=== PATIENT | female | born 1995 | race Caucasian/White ===

== ENCOUNTER 2021-08-30 09:05 | Inpatient (IN) | payer BC ==
[2021-08-30] MEDS ORDERED: Ondansetron 4 MG/2 ML SDV IVPUSH PRN (09:45)
[2021-08-30] MEDS ORDERED: Sodium Chloride 0.9% 10 ML Syringe FLUSH PRN (09:45)
[2021-08-30] MEDS ORDERED: Water For Irrigation,Sterile 1,000 ML Container IRR PRN (09:45)
[2021-08-30] MEDS ORDERED: Butorphanol 1 MG/ML SDV IVPUSH PRN (09:45)
[2021-08-30] MEDS ORDERED: Lactated Ringers 1,000 ML IV SCH (09:45)
[2021-08-30] MEDS ORDERED: Oxytocin/0.9 % Sodium Chloride 30 UNIT/500 ML BAG IV SCH (09:45)
[2021-08-30] MEDS ORDERED: Lidocaine 1% 50 ML MDV INJECT PRN (09:45)
[2021-08-30] MEDS ORDERED: Carboprost Tromethamine 250 MCG/1 ML Amp IM PRN (09:45)
[2021-08-30] MEDS ORDERED: Sodium Chloride 0.9% 2.5 ML Syringe FLUSH PRN (09:45)
[2021-08-30] MEDS ORDERED: Methylergonovine 0.2 MG/1 ML Amp IM PRN (09:45)
[2021-08-30] MEDS ORDERED: Sodium Chloride 0.9% 20 ML SDV IV PRN (09:45)
[2021-08-30] MEDS ORDERED: Misoprostol 200 MCG Tab PO PRN (09:45)
[2021-08-30] MEDS ORDERED: Tranexamic Acid 1,000 MG in Sodium Chloride 0.9% 100 ML IV PRN (09:45)
[2021-08-30] MEDS ORDERED: Labetalol 100 MG/20 ML MDV IVPUSH PRN (09:49)
[2021-08-30] MEDS ORDERED: fentaNYL 100 MCG/2 ML SDV ONE (11:34)
[2021-08-30] MEDS ORDERED: Ropivacaine 100 ML ONE (11:34)
[2021-08-30 11:35] LABS: BLOOD UREA NITROGEN,BUN 13 mg/dL (7.0-18.0); CHLORIDE,CL 103 mmol/L (98-107); GLUCOSE RANDOM 78 mg/dL (74-106); POTASSIUM,K 3.9 mmol/L (3.5-5.1); SODIUM,NA 137 mmol/L (136-145)
[2021-08-30] MEDS ORDERED: ePHEDrine 50 MG/ML SDV IVPUSH PRN (12:00)
[2021-08-30] MEDS ORDERED: Docusate Sodium 100 MG Cap PO PRN (16:48)
[2021-08-30] MEDS ORDERED: Bisacodyl 10 MG Supp RECTAL PRN (16:48)
[2021-08-30] MEDS ORDERED: oxyCODONE 5 MG Tab PO PRN (16:48)
[2021-08-30] MEDS ORDERED: Lanolin 100% Cream 7 GM Tube TOP PRN (16:48)
[2021-08-30] MEDS: Witch Hazel Medicated Pads 40/Jar TOP PRN (19:36)
[2021-08-30] MEDS: Acetaminophen 500 MG Tab PO PRN (19:36)
[2021-08-30] MEDS: Benzocaine/Menthol 20%-0.5% Spray 78 GM Cannister TOP PRN (19:37)
[2021-08-30] MEDS: Ibuprofen 800 MG Tab PO PRN (23:15)
[2021-08-31] MEDS: Acetaminophen 500 MG Tab PO PRN (05:30)
[2021-08-31] MEDS: Ibuprofen 800 MG Tab PO PRN (09:51)
[2021-08-31] MEDS: Benzocaine/Menthol 20%-0.5% Spray 78 GM Cannister TOP PRN (11:58)
[2021-08-31] MEDS: Witch Hazel Medicated Pads 40/Jar TOP PRN (11:59)
[2021-09-01] MEDS: Acetaminophen 500 MG Tab PO PRN (00:24)
== END 2021-09-01 22:27 | disposition home or self-care (01) | DRG 560 ==
LOC: MW.OBCHECK 09:05 → MW.OB 09:08 → MW.OBCHECK 09:45 → MW.OB 10:05 → OBSVTOIN 16:48 → MW.OB 19:49
PROVIDERS: ADMIT Obstetrics & Gynecology; ATTEND Obstetrics & Gynecology
PROC: 10E0XZZ Delivery of Products of Conception, External Approach (ICD-10-PCS; principal; 2021-08-30)
PROC: 0KQM0ZZ Repair Perineum Muscle, Open Approach (ICD-10-PCS; 2021-08-30)
PROC: 3E0R3BZ Introduction of Anesthetic Agent into Spinal Canal, Percutaneous Approach (ICD-10-PCS; 2021-08-30)
PROC: 00HU33Z Insertion of Infusion Device into Spinal Canal, Percutaneous Approach (ICD-10-PCS; 2021-08-30)
PROC: 3E0234Z Introduction of Serum, Toxoid and Vaccine into Muscle, Percutaneous Approach (ICD-10-PCS; 2021-08-30)
DX: O13.4 Gestational [pregnancy-induced] hypertension without significant proteinuria, complicating childbirth (principal); O77.0 Labor and delivery complicated by meconium in amniotic fluid; Z37.0 Single live birth; O70.1 Second degree perineal laceration during delivery; O99.824 Streptococcus B carrier state complicating childbirth; O26.893 Other specified pregnancy related conditions, third trimester; Z3A.38 38 weeks gestation of pregnancy; Z67.11 Type A blood, Rh negative
CPT/HCPCS: 01967; 36415; 36430; 51702; 59025; 59409; 80053; 81003; 84550; 85014; 85018; 85027; 85460; 86592; 86850; 86900; 86901; A9270-GY; J2590; J2790; J2795; J3010; J3370; J7050; J7120